=== PATIENT | female | born 1995 | race Two or more races ===

== ENCOUNTER 2025-01-23 14:00 | Emergency (ER) | payer OTHER ==
[~2025-01-23 14:00] MED LIST: Iopamidol 370 76% 100 ML VIAL ONE
[2025-01-23 14:37] LABS: Glucose, Urine (Dipstick) Negative (Negative); Leukocyte Negative (Negative); Protein, Urine (Dipstick) Negative (Neg-Trace); Specific Gravity, Urine 1.020 (1.005-1.030)
[2025-01-23 14:40] LABS: Pregnancy Test - Urine (BHCG) Negative (Negative); Pregu Control Background? CLEAR/WHITE (CLR/WHITE); Pregu Control Bar Appear? YES (CONTROL BAR)
[2025-01-23 14:40] LABS: #Basophils 0.1 thou/uL (0.0-0.2); #Eosinophils 0.1 thou/uL (0.0-0.7); #Lymphocytes 1.9 thou/uL (1.20-3.40); #Monocytes 0.3 thou/uL (0.11-0.59); #Neutrophils 3.3 thou/uL (1.40-6.50); %Basophils 1.4 % (0.0-1.0); %Eosinophils 1.3 % (0.0-10.0); %Lymphocytes 33.1 % (21.0-51.0); %Monocytes 5.9 % (0.0-10.0); %Neutrophils 58.3 % (42.0-75.0); Hematocrit 42.0 % (36.0-47.0); Hemoglobin 13.4 g/dL (12.0-16.0); Mean Corpuscular Hemoglobin 29.8 pg (27.0-31.0); Mean Corpuscular Volume 93.6 fl (78.0-98.0); Platelet Count 352 10x3/uL (130-400); Red Blood Cell (RBC) Count 4.49 mill/uL (4.20-5.40); White Blood Cell (WBC) Count 5.7 10x3/uL (4.8-10.8)
[2025-01-23 14:45] LABS: Bacteria/HPF Rare-Few HPF (None Seen); CAUTI Indications for Culture Alt mental st,lethar; Cocaine Metabolite Screen Negative (Negative); RBC/HPF None Seen HPF (0-3); THC/Cannabinoid Screen Negative (Negative); Tricyclic Screen Negative (Negative); Urine Culture Reflex No No; WBC/HPF 0-3 HPF (0-3)
[2025-01-23 14:54] LABS: ALT (SGPT) 12 U/L (Less than 34); AST (SGOT) 19 U/L (11-34); Albumin 4.7 g/dL (3.1-4.5); Alkaline Phosphatase 58 U/L (40-110); Anion Gap 16 mmol/L (10-20); BUN (Urea Nitrogen) 12 mg/dL (7.0-18.7); Bilirubin, Total 0.5 mg/dL (0.3-1.2); Calc. Creatinine Clearance 0 mL/min (70-130); Calcium 9.6 mg/dL (7.8-10.44); Carbon Dioxide 24 mmol/L (22-29); Chloride 102 mmol/L (98-107); Globulin 3.4 g/dL (2.4-3.5); Glucose 84 mg/dL (70-105); Potassium 4.7 mmol/L (3.5-5.1); Sodium 137 mmol/L (136-145)
== END 2025-01-23 16:40 | disposition home or self-care (01) ==
LOC: MADERS 14:00
DX: R10.9 Unspecified abdominal pain (principal)
CPT/HCPCS: 36415; 74177; 80053; 80306; 81001; 81025; 84702; 85025; Q9967